=== PATIENT | male | born 1960 | race Caucasian/White ===

== ENCOUNTER 2018-02-23 04:57 | Emergency (ER) | payer MEDICAID ==
[~2018-02-23] VITALS: Ht 167.6 cm; Wt 90.7 kg
[2018-02-23 04:57] VITALS: BP_SYST 144
[~2018-02-23 04:57] MED LIST: CEPH-568 PO; FLUC200T PO; GLU850 PO
[2018-02-23] MEDS ORDERED: NACL 0.9% 1,000 ML IV ONE (05:19)
[2018-02-23] MEDS ORDERED: ONDANSETRON HCL 4 MG/2 ML VIAL IVP ONE (05:30)
[2018-02-23 06:29] LABS: CALCIUM 9.4 mg/dL (8.4-11.0); CREATININE 0.91 mg/dL (0.55-1.30); POTASSIUM 3.3 mmol/L (3.5-5.1)
[2018-02-23 06:35] LABS: ALBUMIN 3.1 g/dL (3.4-4.8); INR 0.9 (0.80-1.20); PROTHROMBIN TIME 9.3 SECS (9.5-12.5); TOTAL BILIRUBIN 0.2 mg/dL (0.0-1.0)
[2018-02-23 06:56] LABS: BILIRUBIN,URINE NEGATIVE (NEGATIVE); CLARITY/URINE CLEAR (CLEAR); COLOR,URINE YELLOW (YELLOW); GLUCOSE,URINE 1+ (NEGATIVE); KETONES,URINE NEGATIVE (NEGATIVE); LEUKOCYTE ESTERASE ,URINE NEGATIVE (NEGATIVE); NITRITE, URINE NEGATIVE (NEGATIVE); PROTEIN URINE NEGATIVE (NEGATIVE); UROBILINOGEN,URINE 0.2 (0.2-1.0)
[2018-02-23 07:01] LABS: BLOOD, URINE TRACE (NEGATIVE)
[2018-02-23] MEDS ORDERED: INSULIN REGULAR, HUMAN 10 UNITS/0.1 ML INJ IVP ONE (07:15)
[2018-02-23 07:19] LABS: RBC,URINE 0-3 /HPF (0-3); WBC,URINE 0-3 /HPF (0-3)
[2018-02-23 07:20] LABS: BACTERIA,URINE FEW /HPF (None Seen); MUCUS,URINE None Seen /LPF (None Seen)
[2018-02-23 07:47] LABS: BARBITURATE, URINE NEGATIVE (NEG <=200); BENZODIAZEPINE, URINE NEGATIVE (NEG <=150); CANNABINOID, URINE NEGATIVE (NEG <=50); COCAINE, URINE NEGATIVE (NEG <=150); METHAMPHETAMINES SCREEN,URINE NEGATIVE (NEG <=500); OPIATE, URINE NEGATIVE (NEG <=100); PHENCYCLIDINE SCREEN,URINE NEGATIVE (NEG <=25); UR TRICYCLIC ANTIDEPRESSANTS NEGATIVE (NEG <=300); URINE AMPHETAMINE NEGATIVE (NEG <=500); URINE METHADONE NEGATIVE (NEG <=200); URINE OXYCODONE SCREEN NEGATIVE (NEG <=100); URINE PROPOXYPHENE SCREEN NEGATIVE (NEG <=300)
[2018-02-23 07:50] LABS: HEMATOCRIT 47.2 % (36-54); HEMOGLOBIN 15.7 g/dL (14.0-18.0); MEAN CORPUSCULAR VOLUME 90 fL (79.0-98.0); WHITE BLOOD COUNT (AUTO) 7.9 K/uL (4.8-10.8)
[2018-02-23 07:51] LABS: BASOPHILS % (AUTO) 0.3 % (0.0-2.0); EOSINOPHILS % (AUTO) 2.2 % (0.0-4.0); LYMPHOCYTES % (AUTO) 21.5 % (20.5-51.5); MEAN CORPUSCULAR HEMOGLOBIN 30 pg (27-31); MEAN CORPUSCULAR HGB CONC 33 % (32-36); MONOCYTES % (AUTO) 5.9 % (1.7-9.3); NEUTROPHILS % (AUTO) 70.1 % (40.0-70.0); PLATELET COUNT (AUTO) 236 K/uL (130-430)
[2018-02-23 07:52] LABS: EOSINOPHILS # (AUTO) 0.2 K/uL (0.0-0.4); LYMPHOCYTES # (AUTO) 1.7 K/uL (1.0-5.5); MONOCYTES # (AUTO) 0.5 K/uL (0.0-1.0); NEUTROPHILS # (AUTO) 5.5 K/uL (1.8-7.7)
== END 2018-02-23 08:01 | disposition left against medical advice (07) ==
LOC: SED 04:57
DX: E11.65 Type 2 diabetes mellitus with hyperglycemia (principal); I10 Essential (primary) hypertension; E87.5 Hyperkalemia; F17.200 Nicotine dependence, unspecified, uncomplicated; Z79.4 Long term (current) use of insulin
CPT/HCPCS: 36415; 71045; 80053; 80307; 81000; 84484; 85025; 85610; 85730; 93005; 96361; 96374; 96375; 99285; J1815; J2405; J7030

== ENCOUNTER 2020-04-16 17:14 | Emergency (ER) | payer MEDICAID ==
[~2020-04-16] VITALS: Ht 170.2 cm; Wt 99.8 kg
[2020-04-16 17:14] VITALS: BP_SYST 123
[~2020-04-16 17:14] MED LIST changes: -CEPH-568 PO; -FLUC200T PO
[2020-04-17 00:08] LABS: BASOPHILS # (AUTO) 0.1 K/uL (0.0-0.2); BASOPHILS % (AUTO) 1.1 % (0.0-2.0)
[2020-04-17 00:11] LABS: CALCIUM 9.4 mg/dL (8.4-11.0); CREATININE 1.81 mg/dL (0.55-1.30); POTASSIUM 4.2 mmol/L (3.5-5.1)
[2020-04-17 00:17] LABS: ALBUMIN 3.6 g/dL (3.4-4.8); TOTAL BILIRUBIN 0.4 mg/dL (0.0-1.0)
[2020-04-17 00:27] LABS: EOSINOPHILS # (AUTO) 0.1 K/uL (0.0-0.4); HEMATOCRIT 47.1 % (36-54); HEMOGLOBIN 15.5 g/dL (14.0-18.0); LYMPHOCYTES # (AUTO) 2.4 K/uL (1.0-5.5); LYMPHOCYTES % (AUTO) 18.8 % (20.5-51.5); MEAN CORPUSCULAR HEMOGLOBIN 30 pg (27-31); MEAN CORPUSCULAR HGB CONC 33 % (32-36); MEAN CORPUSCULAR VOLUME 92 fL (79.0-98.0); NEUTROPHILS # (AUTO) 9.2 K/uL (1.8-7.7); NEUTROPHILS % (AUTO) 71.1 % (40.0-70.0); PLATELET COUNT (AUTO) 251 K/uL (130-430); RED BLOOD CELL COUNT(AUTO) 5.13 MIL/uL (4.2-6.2); RED CELL DISTRIBUTION WIDTH 13.7 % (9.0-15.0); WHITE BLOOD COUNT (AUTO) 12.9 K/uL (4.8-10.8)
[2020-04-17 01:05] VITALS: BP_SYST 123
== END 2020-04-17 01:05 | disposition home or self-care (01) ==
LOC: SED 17:14
DX: M79.671 Pain in right foot (principal); I10 Essential (primary) hypertension; E11.9 Type 2 diabetes mellitus without complications
CPT/HCPCS: 36415; 80053; 85025; 99284